=== PATIENT | male | born 1925 | race Caucasian/White ===

== ENCOUNTER 2017-09-12 10:37 | Emergency (ER) | payer MEDICARE, BC ==
[~2017-09-12] VITALS: Ht 182.9 cm; Wt 89.4 kg
[~2017-09-12 10:37] MED LIST: DIGO125T5 PO; GABAPENTIN PO
[2017-09-12] MEDS ORDERED: ALPR0.25 PO (11:04)
[2017-09-12] MEDS ORDERED: AMLO2.5T2 PO (11:04)
[2017-09-12] MEDS ORDERED: ASPI-605 PO (11:04)
[2017-09-12] MEDS ORDERED: AMIO200T2 PO (11:04)
[2017-09-12] MEDS ORDERED: UROXATRAL (11:04)
[2017-09-12] MEDS ORDERED: FLUT1DIS27 INH (11:04)
[2017-09-12] MEDS ORDERED: DIGO125T5 PO (11:04)
[2017-09-12] MEDS ORDERED: ESZO3TAB27 PO (11:04)
[2017-09-12] MEDS ORDERED: VICODIN (11:04)
[2017-09-12] MEDS ORDERED: GABAPENTIN PO (11:04)
--- NOTE | 2017-09-12 11:07 | NUR ---
PT IS IN ROOM #2B. DR NARVAEZ EVALUATED THE PT.
--- NOTE | 2017-09-12 11:57 | NUR ---
PT WAS D/C TO HOME. D/C INSTRUCTIONS GIVEN TO THE PT.
[2017-09-12 11:59] VITALS: BP 142/84
== END 2017-09-12 12:23 | disposition home or self-care (01) ==
LOC: ER 10:37
DX: S89.91XA Unspecified injury of right lower leg, initial encounter (principal); E03.9 Hypothyroidism, unspecified; I10 Essential (primary) hypertension; I48.91 Unspecified atrial fibrillation; Z91.041 Radiographic dye allergy status; Z91.018 Allergy to other foods; Z79.82 Long term (current) use of aspirin; Z79.891 Long term (current) use of opiate analgesic; Z79.899 Other long term (current) drug therapy; X58.XXXA Exposure to other specified factors, initial encounter; Y93.89 Activity, other specified; Y92.89 Other specified places as the place of occurrence of the external cause; Y99.8 Other external cause status
CPT/HCPCS: 73502; A4663

== ENCOUNTER 2017-10-13 16:13 | Emergency (ER) | payer MEDICARE, BC ==
[~2017-10-13] VITALS: Ht 182.9 cm; Wt 86.2 kg
[~2017-10-13 16:13] MED LIST changes: +ALPR0.25 PO; +AMIO200T2 PO; +AMLO2.5T2 PO; +ASPI-605 PO; +ESZO3TAB27 PO; +FLUT1DIS27 INH; +UROXATRAL; +VICODIN
--- NOTE | 2017-10-13 16:26 | NUR ---
Dr Martinez at the bedside for MSE.
[2017-10-13 17:22] VITALS: BP 126/78
--- NOTE | 2017-10-13 17:23 | NUR ---
Patient discharged to home in stable conditon. Written and verbal after care instructions given. Patient verbalizes understanding of instructions. Pt used own walker to walk out of Er accompained by .
== END 2017-10-13 17:24 | disposition home or self-care (01) ==
LOC: ER 16:15
DX: M25.571 Pain in right ankle and joints of right foot (principal); I10 Essential (primary) hypertension; I48.91 Unspecified atrial fibrillation; E03.9 Hypothyroidism, unspecified; Z91.018 Allergy to other foods; Z91.041 Radiographic dye allergy status; Z79.899 Other long term (current) drug therapy; Z79.891 Long term (current) use of opiate analgesic; Z79.82 Long term (current) use of aspirin; Z79.51 Long term (current) use of inhaled steroids
CPT/HCPCS: 73610; 73630; A4663